=== PATIENT | male | born 1990 | race Caucasian/White ===

== ENCOUNTER 2018-07-21 12:51 | Emergency (ER) | payer OTHER, SELFPAY ==
[2018-07-21 12:55] VITALS: BP 144/84; PULSE 89; RESP 18; TEMP 36.3; O2SAT 96
--- NOTE | 2018-07-21 13:08 | W.ED.GENAD ---
Discharge Plan Disposition Patient Disposition: HOME Condition: Fair Discharge Details Chief Complaint: Abd Prob Clinical Impression: Epiploic appendagitis Primary Care Provider: Uriah Chanel ED Provider: Leatha Mcnulty Home Meds and New Rx's Prescriptions: New acetaminophen [Tylenol Extra Strength] 500 mg tablet 500 mg PO Q6H MDD 4,000 PRN (Reason: pain) Qty: 20 RF: 0 ibuprofen 600 mg tablet 600 mg PO QID PRN (Reason: pain) Qty: 20 RF: 0 Discharge Instructions Instructions: Abdominal Pain (ED) Additional Instructions: Encourage hydration. He states Tylenol and ibuprofen as needed for discomfort. Please follow-up with primary care in 1 week for reevaluation. If you develop fever/chills, increased pain, inability to stay hydrated, vomiting new/worsening symptoms please seek care urgently once again. Stand Alone Forms: Work Release Referrals: Uriah Chanel DO [Primary Care Provider] - Medical Decision Making Patient 28-year-old male presents for chief complaint left lower quadrant pain. Reports the pain began insidiously last night. No change in appetite. Does state that last night his pain increased after p.o. consumption. However, he has not noted increased increased pain today after eating. Denies any fevers or chills. No nausea or vomiting. No change in bowel or bladder habit. Has not noted any blood in his stool. No pain in his testicles. Patient denies previous abdominal surgeries. On exam, patient is point tender in the left lower quadrant. He appears nontoxic with stable vital signs. Plan obtain laboratory evaluation as well as CT scan. Laboratory evaluation without significant abnormalities Spoke with the radiologist regarding CT. He advises significant for epiploic appendagitis. Will consult with general surgery. Spoke with Dr. Lynch with general surgery. She advised that pain management with non narcotics is appropriate. Stated that the fat should calcify. Without findings to suggest infection, no other treatment is necessary at this time, she advised no antibiotics are needed at this time. Patient and I discussed diagnosis and pathology. We discussed expected course. Advise follow-up with primary care next week for reevaluation. He will seek care more urgently if he develops new or worsening symptoms. In particular, patient I discussed signs symptoms of infection and when to seek care urgently once again. All of his questions and concerns were addressed and he is in agreement this plan. HPI General Mode of arrival: ambulatory. Date/Time Provider Initiated Documentation: 07/21/18 12:56. Limitations to Documentation: no limitations. Information obtained by: patient. History of Present Illness 28 year old M presents to the emergency department with the chief complaint of abdominal pain, described as moderate, with intensity rated at 5. Quality is described as aching, and is localized to the abdomen. Patient reports no radiation. Patient started experiencing this day(s) (1) and it has been constant. No relieving factors improve symptom(s), No exacerbating factors reported . Patient notes denies chest pain, cough, fever/chills, headaches, loss of appetite, nausea/vomiting, rash, shortness of breath and weakness. Patient did receive the following treatments prior to arrival, none Related Data Home Medications Medication Instructions Recorded Confirmed acetaminophen [Tylenol Extra 500 mg PO Q6H PRN #20 tab MDD 4,000 07/21/18 Strength] ibuprofen 600 mg PO QID PRN #20 tab 07/21/18 Previous Rx's Medication Instructions Recorded acetaminophen [Tylenol Extra 500 mg PO Q6H PRN #20 tab MDD 4,000 07/21/18 Strength] ibuprofen 600 mg PO QID PRN #20 tab 07/21/18 Allergies Allergy/AdvReac Type Severity Reaction Status Date / Time No Known Allergies Allergy Unverified 07/21/18 13:00 General Stated Complaint: Abd Prob KONRAD: 3 Review of Systems Constitutional Reports as per HPI, Denies chills, Denies fatigue, Denies fever(s) and Denies headache(s) ENT Denies headache(s) Cardiovascular Reports as per HPI, Denies chest pain and Denies dyspnea Respiratory Denies dyspnea Gastrointestinal Reports as per HPI Genitourinary Denies system reviewed and no additional complaints, except as docu (patient denies any change in urinary habits) Musculoskeletal Reports as per HPI and Denies back pain Integumentary/Breasts Reports as per HPI and Denies rash Neurologic Denies headache(s) Endocrine Denies fatigue PFSH Social History Smoking/Tobacco Use Status: Former Tobacco Use Social History Smoking/Tobacco Use Status: Former Tobacco Use Exam Const General: cooperative, healthy appearing, comfortable, no acute distress and well developed Nutritional Appearance: well nourished and overweight Orientation: alert and awake [facility] Head: normal to inspection Mouth: moist mucous membranes Resp Effort & Inspection: normal respiratory effort, able to speak in complete sentences and no respiratory distress Auscultation: clear to auscultation bilaterally, no rales, no rhonchi and no wheezes Cardio Rate: regular rate Rhythm: regular rhythm Heart Sounds: S1 normal and S2 normal GI Inspection: normal to inspection, no abdominal wall ecchymosis, no edema, non-distended and obesity Palpation: soft, no hepatosplenomegaly, not firm, no guarding, not rigid and tender in the LLQ; not at McBurney's point, Bourgeois's sign negative, obturator sign negative, psoas sign negative and with no rebound tenderness Percussion: normal to percussion Auscultation: normal bowel sounds Back/Spine/Pelvis Back: no CVA tenderness Skin General skin exam: no rashes or lesions noted Trauma: no lacerations or abrasions Neuro General: alert and awake Cognition: normal cognition Speech: speech normal Gait: normal gait Psych Appearance: grossly normal and well kempt Mental Status: mental status grossly normal Speech and Movement: speech and movement normal Course Vital Signs Temperature 36.3 C L 07/21/18 12:55 Pulse 89 07/21/18 12:55 Respiratory Rate 18 07/21/18 12:55 Blood Pressure 144/84 H 07/21/18 12:55 Pulse Oximetry 96 07/21/18 12:55 Temperature 36.3 C L 07/21/18 12:55 Temperature Source Skin 07/21/18 12:55 Pulse 89 07/21/18 12:55 Respiratory Rate 18 07/21/18 12:55 Respiratory Effort 07/21/18 12:58 Blood Pressure 144/84 H 07/21/18 12:55 Blood Pressure Position Sitting 07/21/18 12:55 Pulse Oximetry 96 07/21/18 12:55 Oxygen Delivery Method Room Air 07/21/18 12:55 Oxygen Flow Rate 0 07/21/18 12:55 Pain Level 5 07/21/18 13:00
[2018-07-21 13:38] LABS: Abs Immature Grans 0.01 k/cumm (0.0-0.09); Absolute Basophil Count 0.02 k/cumm (0.0-0.2); Absolute Lymphocyte Count 1.85 k/cumm (1.2-3.4); Absolute Monocyte Count 0.45 k/cumm (0.11-0.7); Absolute Neutrophil Count 5.28 k/cumm (1.2-6.7); Basophils % 0.3; Eosinophils % 1.3; HCT 45.6 % (40.0-50.0); Immature Grans % 0.1; Mean Corp. HGB Concentration 35.1 g/dL (32.0-36.0); Mean Corpuscular Hemoglobin 30.3 pg (27.0-33.0); Mean Corpuscular Volume 86.4 fL (80-95); Mean Platelet Volume 9.5 fL (8.0-11.0); Monocytes % 5.8; Neutrophils % 68.5; Platelet Count 286 x1000/uL (130-400); RBC 5.28 m/cumm (4.50-6.00); RBC Distribution Width 12.7 % (11.8-14.1); White Blood Cell Count 7.71 k/cumm (4.4-10.8)
--- NOTE | 2018-07-21 13:51 | ED.GENADUL_ITS ---
Discharge Plan Disposition Patient Disposition: HOME Condition: Fair Discharge Details Chief Complaint: Abd Prob Clinical Impression: Epiploic appendagitis Primary Care Provider: Uriah Chanel ED Provider: Leatha Mcnulty Home Meds and New Rx's Prescriptions: New acetaminophen [Tylenol Extra Strength] 500 mg tablet 500 mg PO Q6H MDD 4,000 PRN (Reason: pain) Qty: 20 RF: 0 ibuprofen 600 mg tablet 600 mg PO QID PRN (Reason: pain) Qty: 20 RF: 0 Discharge Instructions Instructions: Abdominal Pain (ED) Additional Instructions: Encourage hydration. He states Tylenol and ibuprofen as needed for discomfort. Please follow-up with primary care in 1 week for reevaluation. If you develop fever/chills, increased pain, inability to stay hydrated, vomiting new/ worsening symptoms please seek care urgently once again. Stand Alone Forms: Work Release Referrals: Uriah Chanel DO [Primary Care Provider] - Medical Decision Making Patient 28-year-old male presents for chief complaint left lower quadrant pain. Reports the pain began insidiously last night. No change in appetite. Does state that last night his pain increased after p.o. consumption. However, he has not noted increased increased pain today after eating. Denies any fevers or chills. No nausea or vomiting. No change in bowel or bladder habit. Has not noted any blood in his stool. No pain in his testicles. Patient denies previous abdominal surgeries. On exam, patient is point tender in the left lower quadrant. He appears nontoxic with stable vital signs. Plan obtain laboratory evaluation as well as CT scan. Laboratory evaluation without significant abnormalities Spoke with the radiologist regarding CT. He advises significant for epiploic appendagitis. Will consult with general surgery. Spoke with Dr. Lynch with general surgery. She advised that pain management with non narcotics is appropriate. Stated that the fat should calcify. Without findings to suggest infection, no other treatment is necessary at this time, she advised no antibiotics are needed at this time. Patient and I discussed diagnosis and pathology. We discussed expected course. Advise follow-up with primary care next week for reevaluation. He will seek care more urgently if he develops new or worsening symptoms. In particular, patient I discussed signs symptoms of infection and when to seek care urgently once again. All of his questions and concerns were addressed and he is in agreement this plan. HPI General Mode of arrival: ambulatory . Date/Time Provider Initiated Documentation: 07/21/18 12:56 . Limitations to Documentation: no limitations . Information obtained by: patient . History of Present Illness 28 year old M presents to the emergency department with the chief complaint of abdominal pain, described as moderate, with intensity rated at 5. Quality is described as aching, and is localized to the abdomen. Patient reports no radiation. Patient started experiencing this day(s) (1) and it has been constant. No relieving factors improve symptom(s), No exacerbating factors reported . Patient notes denies chest pain, cough, fever/chills, headaches, loss of appetite, nausea/vomiting, rash, shortness of breath and weakness. Patient did receive the following treatments prior to arrival, none Related Data Home Medications Medication Instructions Recorded Confirmed acetaminophen [Tylenol Extra 500 mg PO Q6H PRN #20 tab MDD 4,000 07/21/18 Strength] ibuprofen 600 mg PO QID PRN #20 tab 07/21/18 Previous Rx's Medication Instructions Recorded acetaminophen [Tylenol Extra 500 mg PO Q6H PRN #20 tab MDD 4,000 07/21/18 Strength] ibuprofen 600 mg PO QID PRN #20 tab 07/21/18 Allergies Allergy/AdvReac Type Severity Reaction Status Date / Time No Known Allergies Allergy Unverified 07/21/18 13:00 General Stated Complaint: Abd Prob KONRAD: 3 Review of Systems Constitutional Reports as per HPI, Denies chills, Denies fatigue, Denies fever(s) and Denies headache(s) ENT Denies headache(s) Cardiovascular Reports as per HPI, Denies chest pain and Denies dyspnea Respiratory Denies dyspnea Gastrointestinal Reports as per HPI Genitourinary Denies system reviewed and no additional complaints, except as docu (patient denies any change in urinary habits) Musculoskeletal Reports as per HPI and Denies back pain Integumentary/Breasts Reports as per HPI and Denies rash Neurologic Denies headache(s) Endocrine Denies fatigue PFSH Social History Smoking/Tobacco Use Status: Former Tobacco Use Social History Smoking/Tobacco Use Status: Former Tobacco Use Exam Const General: cooperative, healthy appearing, comfortable, no acute distress and well developed Nutritional Appearance: well nourished and overweight Orientation: alert and awake [facility] Head: normal to inspection Mouth: moist mucous membranes Resp Effort & Inspection: normal respiratory effort, able to speak in complete sentences and no respiratory distress Auscultation: clear to auscultation bilaterally, no rales, no rhonchi and no wheezes Cardio Rate: regular rate Rhythm: regular rhythm Heart Sounds: S1 normal and S2 normal GI Inspection: normal to inspection, no abdominal wall ecchymosis, no edema, non- distended and obesity Palpation: soft, no hepatosplenomegaly, not firm, no guarding, not rigid and tender in the LLQ; not at McBurney's point, Bourgeois's sign negative, obturator sign negative, psoas sign negative and with no rebound tenderness Percussion: normal to percussion Auscultation: normal bowel sounds Back/Spine/Pelvis Back: no CVA tenderness Skin General skin exam: no rashes or lesions noted Trauma: no lacerations or abrasions Neuro General: alert and awake Cognition: normal cognition Speech: speech normal Gait: normal gait Psych Appearance: grossly normal and well kempt Mental Status: mental status grossly normal Speech and Movement: speech and movement normal Course Vital Signs Temperature 36.3 C L 07/21/18 12:55 Pulse 89 07/21/18 12:55 Respiratory Rate 18 07/21/18 12:55 Blood Pressure 144/84 H 07/21/18 12:55 Pulse Oximetry 96 07/21/18 12:55 Temperature 36.3 C L 07/21/18 12:55 Temperature Source Skin 07/21/18 12:55 Pulse 89 07/21/18 12:55 Respiratory Rate 18 07/21/18 12:55 Respiratory Effort 07/21/18 12:58 Blood Pressure 144/84 H 07/21/18 12:55 Blood Pressure Position Sitting 07/21/18 12:55 Pulse Oximetry 96 07/21/18 12:55 Oxygen Delivery Method Room Air 07/21/18 12:55 Oxygen Flow Rate 0 07/21/18 12:55 Pain Level 5 07/21/18 13:00
[2018-07-21 13:57] LABS: Lipase 110 U/L (73-393)
[2018-07-21 14:07] LABS: ALT 49 U/L (12-78); AST 17 U/L (15-37); Albumin 4.1 g/dL (3.4-5.0); Alkaline Phosphatase 58 U/L (46-116); Anion Gap 12.1 mmol/L (3-11); BUN 19 mg/dL (7-18); Bilirubin, Total 0.5 mg/dL (0.2-1.0); CO2 25.9 mmol/L (21.0-32.0); CREATININE 1.04 mg/dL (0.70-1.30); Calcium 9.1 mg/dL (8.5-10.1); Chloride 103 mmol/L (98-107); Glucose 95 mg/dL (70-100); Magnesium 1.9 mg/dL (1.8-2.4); Potassium 3.9 mmol/L (3.5-5.1); Sodium 141 mmol/L (136-145); Total Protein 7.6 g/dL (6.4-8.2)
--- NOTE | 2018-07-21 14:18 | DI.CT_ITS ---
SYMPTOM/DIAGNOSIS: ABDOMEN AND PELVIC CT: CT scan of the abdomen and pelvis was performed following the uneventful administration of intravenous contrast material. No priors for comparison. The lung bases are clear. The liver, spleen, pancreas and adrenal glands are unremarkable. There are stones seen within the gallbladder. No biliary ductal dilatation is present. The kidneys show normal and symmetric enhancement. No solid renal mass or obstruction is seen. The urinary bladder is intact. The reproductive organs are unremarkable. There is increased attenuation in the fat adjacent to the proximal sigmoid colon. The underlying bowel is unremarkable. The findings are most suggestive of epiploic appendagitis. The remainder of the bowel is unremarkable. There is a normal appendix present. The abdominal aorta is of normal caliber. No significant abdominal or pelvic adenopathy, ascites or pneumoperitoneum is seen. There is spondylolysis at L 5 with minimal spondylolisthesis of L 5 on S 1. IMPRESSION: Increased attenuation in the fat adjacent to the proximal sigmoid colon. The findings radiographically are most suggestive of epiploic appendagitis. The findings were discussed with Leatha Mcnulty of the ER on the date of the examination.
[2018-07-21] MEDS: Omnipaque 350 MG/ML 100 ML BTL IJ (14:23)
[2018-07-21 14:54] VITALS: BP 144/84; PULSE 89; RESP 18; TEMP 36.3; O2SAT 96
== END 2018-07-21 14:55 | disposition home or self-care (01) ==
LOC: ER 15:31
PROVIDERS: Emergency Provider Physician Assistant; PCP Emergency Medicine
DX: K35.890 Other acute appendicitis without perforation or gangrene (principal)
CPT/HCPCS: 80053; 83690; 99285; 74177; 83735; 85025; 99284; J3490

== ENCOUNTER 2019-11-06 11:48 | Outpatient (CLI) | payer BC, SELFPAY ==
[2019-11-06 12:47] LABS: Abs Immature Grans 0.02 k/cumm (0.0-0.09); Absolute Basophil Count 0.02 k/cumm (0.0-0.2); Absolute Eosinophil Count 0.07 k/cumm (0.0-0.7); Absolute Lymphocyte Count 0.91 k/cumm (1.2-3.4); Absolute Monocyte Count 0.76 k/cumm (0.11-0.7); Absolute Neutrophil Count 8.54 k/cumm (1.2-6.7); Basophils % 0.2; Eosinophils % 0.7; Immature Grans % 0.2 %; Lymphocytes % 8.8; Mean Corp. HGB Concentration 35.4 g/dL (32.0-36.0); Mean Corpuscular Hemoglobin 30.9 pg (27.0-33.0); Mean Corpuscular Volume 87.3 fL (80-95); Mean Platelet Volume 9.5 fL (8.0-11.0); Monocytes % 7.4; Neutrophils % 82.7; Platelet Count 300 x1000/uL (130-400); RBC Distribution Width 12.8 % (11.8-14.1); White Blood Cell Count 10.32 k/cumm (4.4-10.8)
[2019-11-06 13:28] LABS: ESR 15 mm/hr (0-15)
[2019-11-06 14:02] LABS: ALT 32 U/L (16-63); AST 14 U/L (15-37); Albumin 4.5 g/dL (3.4-5.0); Alkaline Phosphatase 62 U/L (46-116); Bilirubin, Direct 0.19 mg/dL (0.00-0.20); Lipase 92 U/L (73-393); Total Protein 7.4 g/dL (6.4-8.2)
[2019-11-06 14:16] LABS: Calculated LDL 165 mg/dL (<100); Cholesterol 246 mg/dL (<200); HDL Cholesterol 53 mg/dL (40-60); Triglyceride 142 mg/dL (<150)
== END 2019-11-06 12:08 ==
PROVIDERS: PCP Emergency Medicine; Visit Provider Family Medicine
DX: E78.5 Hyperlipidemia, unspecified (principal); D64.9 Anemia, unspecified; R10.9 Unspecified abdominal pain; R51 Headache
CPT/HCPCS: 36415; 80061; 80076; 83690; 85652; 85025

== ENCOUNTER 2019-11-08 09:45 | Outpatient (CLI) | payer BC, SELFPAY ==
[2019-11-08] MEDS: Breeza Beverage 473 ML BTL PO ×2 (12:35→12:36)
[2019-11-08] MEDS: Omnipaque 350 MG/ML 50 ML BTL PO (12:36)
--- NOTE | 2019-11-08 14:00 | DI.CT_ITS ---
EXAM: CT ABDOMEN AND PELVIS W CLINICAL HISTORY: PERIUMBILICAL ABD PAIN WITH FEVER, R10.9 TECHNIQUE: Imaging Protocol: Axial computed tomography images with coronal and sagittal reformatted images were created and reviewed CONTRAST MATERIAL: Intravenous: Omnipaque 350 Contrast volume:100 mL Oral: Yes FINDINGS: ABDOMEN: Lung Bases: Normal where visualized. Liver: Normal density. No measurable mass. Portal, Superior Mesenteric, and Splenic Veins: Unremarkable. Gallbladder and Biliary Tract: Cholelithiasis. No biliary ductal dilatation. Pancreas: Normal density, no abnormal calcifications or inflammatory process. Spleen: Normal. Adrenals: No masses seen. Kidneys: Normal size, contour and axis. No radiodense stones or obstructive uropathy. No masses seen. Abdominal Aorta: Abdominal portion non-dilated. Bowel: No obstruction or bowel wall thickening. Appendix is unremarkable. Peritoneal Cavity: No ascites, collection or mesenteric inflammatory response. Lymph Nodes: Mildly enlarged lymph nodes in the mesentery. Bones: Bilateral L5 spondylolysis and grade 1 spondylolisthesis of L5 on S1. Moderately severe bilat eral neural foraminal narrowing at L5-S1. Stable mild sclerosis at the left sacroiliac joint. Soft Tissues: No evidence of a periumbilical mass or abscess. PELVIS: Bladder: Symmetric distention, no gross wall thickening. Reproductive Organs: Unremarkable as visualized. Lymph Nodes: Please see above. Bones: Please see above. IMPRESSION: 1. Mildly enlarged lymph nodes in the mesentery, which may reflect mesenteric adenitis. 2. Bilateral L5 spondylolysis and grade 1 spondylolisthesis. There is moderately severe bilateral ne ural foraminal narrowing at L5-S1. 3. Cholelithiasis but no evidence of biliary ductal dilatation. RADIATION DOSE DELIVERED: DATA REPOSITORY: All CT scans at this facility are submitted to the National Radiology Data Registry (NRDR) Dose Index Registry (DIR) with the [employer] ([employer]). RADIATION OPTIMIZATION: All CT scans at this facility use at least one of these dose optimization te chniques: automated exposure control; mA and/or kV adjustment per patient size (includes targeted exa ms where dose is matched to clinical indication); or iterative reconstruction.
[2019-11-08] MEDS: Omnipaque 350 MG/ML 100 ML BTL IV (14:23)
[2019-11-08] MEDS: Normal Saline - Diluent 50 ML VIAL IV (14:24)
== END 2019-11-08 10:05 ==
PROVIDERS: PCP Emergency Medicine; Visit Provider Family Medicine
DX: R10.33 Periumbilical pain (principal); R50.9 Fever, unspecified; K80.20 Calculus of gallbladder without cholecystitis without obstruction; R59.0 Localized enlarged lymph nodes
CPT/HCPCS: 74177; J3490; Q9967

== ENCOUNTER 2020-07-01 09:56 | Outpatient (REF) | payer BC, SELFPAY ==
[2020-07-01 14:15] LABS: HCT 45.8 % (40.0-50.0); HGB 15.8 g/dL (13.5-17.5); MCH 30.7 pg (27.0-33.0); MCHC 34.5 % (32.0-36.0); MCV 88.9 fL (80-95); MPV 10.4 fL (8.0-11.0); Platelet Count 318 10^3/uL (130-400); RBC 5.15 10^6/uL (4.36-5.78); RDW 12.1 % (11.8-14.1); RDW-SD 39.5 fL; WBC 5.36 10^3/uL (4.4-10.8)
[2020-07-01 14:34] LABS: C-Reactive Protein 0.09 mg/dL (0.0-0.3)
[2020-07-01 14:49] LABS: ESR 5 mm/hr (0-15)
== END 2020-07-01 10:16 ==
LOC: LBN 09:56
PROVIDERS: PCP Emergency Medicine; Visit Provider Emergency Medicine
DX: R51.9 Headache, unspecified (principal)
CPT/HCPCS: 85027; 85652; 86140

== ENCOUNTER 2020-07-08 01:52 | Outpatient (CLI) | payer BC, SELFPAY ==
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
[2020-07-08] MEDS: Omnipaque 350 MG/ML 100 ML BTL IJ (09:30)
[2020-07-08] MEDS: Normal Saline - Diluent 50 ML VIAL IV (09:31)
== END 2020-07-08 02:12 ==
PROVIDERS: PCP Emergency Medicine; Visit Provider Emergency Medicine
DX: G44.82 Headache associated with sexual activity (principal); G44.309 Post-traumatic headache, unspecified, not intractable
CPT/HCPCS: 70470; J3490

== ENCOUNTER 2020-07-17 02:38 | Outpatient (CLI) | payer BC, SELFPAY ==
[2020-07-19 17:01] LABS: COVID-19 RT-PCR Result NEGATIVE (Negative)
== END 2020-07-17 02:58 ==
PROVIDERS: PCP Emergency Medicine; Visit Provider Surgery
DX: Z11.59 Encounter for screening for other viral diseases (principal); Z01.818 Encounter for other preprocedural examination
CPT/HCPCS: U0003

== ENCOUNTER 2020-07-21 13:11 | Day surgery (SDC) | payer BC, SELFPAY ==
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
--- NOTE | 2020-07-21 07:17 | W.PM.DSUDISC ---
Discharge Plan Disposition Patient Disposition: HOME Condition: Good Discharge Details Reason For Visit: Abdominal pain Attending Provider: Ban Dillard Primary Care Provider: Uriah Chanel Home Meds and New Rx's Prescriptions: New omeprazole 40 mg capsule,delayed release(DR/EC) 40 mg PO DAILY Qty: 30 RF: 0 Continued magnesium oxide 400 mg magnesium tablet 400 mg PO DAILY Qty: 90 RF: 3 metoclopramide HCl 10 mg tablet 10 mg PO ONCE PRN (Reason: nausea and vomiting) Qty: 30 RF: 6 acetaminophen [Tylenol Extra Strength] 500 mg tablet 500 mg PO Q6H MDD 4,000 PRN (Reason: pain) Qty: 20 RF: 0 Discontinued naproxen 500 mg tablet 500 mg PO ONCE PRN (Reason: pain) Qty: 30 RF: 3 ibuprofen 600 mg tablet 600 mg PO QID PRN (Reason: pain) Qty: 20 RF: 0 Discharge Instructions Instructions: Diet for Stomach Ulcers and Gastritis (ED), Gastritis (DC), GERD (Gastroesophageal Reflux Disease) (DC) Additional Instructions: Findings: mild to moderate inflammation of the stomach and esophagus Follow up: 2 weeks Medications: start Omeprazole 40 mg daily Other: Please try to avoid ibuprofen, naproxen, advil, aleve, etc as much as possible for a while. Please call if you develop: fevers >101.5 Nausea or Vomiting Abdominal pain that is not transient DAY SURGERY UNIT POST ENDOSCOPY INSTRUCTIONS 1. Because there will be medication in your system for the next 24 hours, you may feel a little sleepy. Your coordination will be affected. Therefore: a. Do not drive or operate dangerous equipment for 24 hours. b. Do not drink alcohol beverages for 24 hours (not even beer). c. Plan to go home and rest for the day. 2. Generally there are no restrictions on your activity after a day or so has gone by, but you may feel a bit fatigued for a few days. 3 After you arrive home you may have a light meal and return to a normal diet as you can tolerate it without feeling sick to your stomach. 4. After surgery, you may feel pain or discomfort. This should be only transient, but if it persists please contact your doctor. 5. If there are any questions regarding the findings of your procedure, please feel free to contact your doctor. 6. If you are unable to contact your doctor with a problem, contact the hospital at [phone]. 4. Continue all your regular medications unless directed otherwise. I understand the above instructions and have no questions. Signature of Patient or Responsible Adult Escort Date/Time Name of Responsible Adult Escort Signature of Nurse Date/Time Referrals: Ban Dillard MD [ [facility] STAFF PHYSICIAN] - Activity:: Activity as Tolerated Diet:: low acid Discharge Orders Discharge Orders: Discharge Order (Routine); Ordered 07/21/20 Ordered By: Ban Dillard
[2020-07-21 13:28] VITALS: BP 127/74; PULSE 73; RESP 16; TEMP 36.3; O2SAT 96
[2020-07-21] MEDS: Lactated Ringers 1,000 ML 80 ML IV (14:16)
--- NOTE | 2020-07-21 14:23 | STOM_PTH ---
PATIENT: Ke Troncoso JR LOC: [facility] U#:[id number] AGE/SX: 30/M ROOM: RE07/21/[address]: Ban Dillard MD : 1990 BED: DIS: 07/21/2020 SPEC #: [id number] RECD: 07/21/20 18:15 STATUS: JUVENCIO RE #: [id number] HUNTER: 07/21/20 14:[address]: Ban Dillard DEPT: Surgical Specimen RECD BY: Karolina Vicente ENTERED: 07/21/20 18:16 SP TYPE: STOMACH OTHR DR: Uriah Chanel DO Tissues: 1 - BIOPSY BOWEL 2 - STOMACH BIOPSY 3 - ESOPHAGUS BIOPSY Procedures: GROSS AND MICRO LEVEL 4 Comments: [id number]
[2020-07-21 15:10] VITALS: BP 115/75; PULSE 73; RESP 18; TEMP 36.6; O2SAT 98
== END 2020-07-21 15:30 | disposition home or self-care (01) ==
LOC: SUR 13:11
PROVIDERS: PCP Emergency Medicine; Visit Provider Surgery
PROC: 0DJ68ZZ Inspection of Stomach, Via Natural or Artificial Opening Endoscopic (ICD-10-PCS; CPT 43235; principal; 2020-07-21 14:00)
DX: R10.9 Unspecified abdominal pain (principal); R68.81 Early satiety; K21.00 Gastro-esophageal reflux disease with esophagitis, without bleeding; K31.89 Other diseases of stomach and duodenum; K29.80 Duodenitis without bleeding; K29.70 Gastritis, unspecified, without bleeding
CPT/HCPCS: 43239; 88305; J2001

== ENCOUNTER 2020-07-24 10:51 | Outpatient (CLI) | payer BC, SELFPAY ==
--- NOTE | 2020-07-24 10:40 | DI.RAD_ITS ---
EXAM: XR CHEST 2V PA LATERAL CLINICAL HISTORY: chest pressure, hx smoking x 15 years R07.89 CHEST PAIN TECHNIQUE: 2D digital imaging was performed. COMPARISON: CR CHEST 2 VIEWS PA,LAT from 07/25/2015 FINDINGS: The heart is not enlarged. The lungs are clear and well expanded. No pleural effusion seen. Mediastin al contours appear intact. IMPRESSION: Normal chest. RADIATION DOSE DELIVERED: Total DLP
== END 2020-07-24 11:11 ==
PROVIDERS: PCP Emergency Medicine; Visit Provider Physician Assistant
DX: R07.89 Other chest pain (principal); Z87.891 Personal history of nicotine dependence
CPT/HCPCS: 71046

== ENCOUNTER 2022-07-27 08:20 | Emergency (ER) | payer BC, SELFPAY ==
[2022-07-27 08:25] VITALS: BP 159/107; PULSE 111; RESP 20; TEMP 37; O2SAT 97
[2022-07-27 08:30] VITALS: RESP 20
[2022-07-27 08:32] VITALS: RESP 20
--- NOTE | 2022-07-27 08:45 | DI.RAD_ITS ---
Exam(s) XR PORTABLE CHEST AP EXAM: XR PORTABLE CHEST AP CLINICAL HISTORY: cough,chest pain TECHNIQUE: 2D digital imaging was performed of the chest. One image was obtained. An AP view was ob tained. COMPARISON: CR XR CHEST 2V PA LATERAL from 07/24/2020 FINDINGS: MEDIASTINUM: Normal. HEART: Normal. PULMONARY VASCULATURE: Normal. LUNGS: Clear. PLEURAL SPACE: No pleural effusion or pneumothorax. BONE:Within normal limits for the patient's age. OTHER FINDINGS:Normal. IMPRESSION: No acute pulmonary findings. DATA REPOSITORY: RADIATION DOSE DELIVERED:
[2022-07-27] MEDS: Dexamethasone 4 MG TAB 8 MG PO (08:53)
[2022-07-27] MEDS: Ibuprofen 600 MG TAB PO (08:53)
--- NOTE | 2022-07-27 13:33 | W.ED.GENAD ---
Discharge Plan Disposition Patient Disposition: Home Condition: Stable Discharge Details Clinical Impression: Influenza A Primary Care Provider: Huy Shah ED Provider: Karolina Monsivais Home Meds and New Rx's Prescriptions: New albuterol sulfate [Ventolin HFA] 90 mcg/actuation HFA aerosol inhaler 2 puff inhalation Q6H PRNQty: 6.7 0RF (DME) Space Chamber Spacer See Rx Instructions .Route Qty: 1 0RF Rx Instructions: As directed Continued Excedrin Extra Strength 250-250-65 mg tablet 1 tab PO ONCE PRN Discharge Instructions Instructions: Influenza (DC) Additional Instructions: Take ibuprofen 600 mg every 8 hours with food Take Tylenol 650 mg every 4-6 hours Robitussin as needed for cough Warm tea can help with mucus production Use your inhaler, 2 puffs every 4-6 hours The Decadron will likely improve your symptoms within the next 4 hours Stand Alone Forms: Work Release Referrals: Huy Shah, [employer]ATION OPERATOR CHIEF [Primary Care Provider] - 2 days Medical Decision Making This 32-year-old male presents with flulike symptoms, ordered rapid flu and COVID Influenza A positive Patient appears well, flu a positive, repeat pulse 90, temp 101 Chest x-ray per radiology interpretation my review does not show evidence of acute abnormality We will give single dose of Decadron for cough and pain Albuterol inhaler now Ibuprofen and Tylenol Return precautions reviewed and patient expressed understanding, discharged home in stable condition with stable vitals Medical Records Medical records reviewed: Yes I reviewed the patient's medical records. Lab Data Lab results reviewed: Yes I reviewed the patient's lab results. Sign Out No HPI General Date/Time Provider Initiated Documentation: 07/27/22 08:40. HPI Narrative: This 32-year-old male presents with report of body aches, headache, sore throat, nausea, diarrhea, pleuritic chest pain and mucus production. States he had a temp of 103 this morning. States all family members are sick with similar symptoms. Denies any history of asthma or COPD. Does not smoke tobacco. Denies any current nausea or vomiting. Related Data Home Medications Medication Instructions Recorded Confirmed vmdsrdi-hzqiatkvqdmcz-vyhgnsoc 250 1 tab PO ONCE PRN 07/09/22 07/27/22 mg-250 mg-65 mg tablet (Excedrin Extra Strength) albuterol sulfate 90 mcg/actuation 2 puff inhalation Q6H PRN #6.7 07/27/22 aerosol inhaler (Ventolin HFA) grams inhalational spacing device (Space #1 ea 07/27/22 Chamber) Previous Rx's Medication Instructions Recorded albuterol sulfate 90 mcg/actuation 2 puff inhalation Q6H PRN #6.7 07/27/22 aerosol inhaler (Ventolin HFA) grams inhalational spacing device (Space #1 ea 07/27/22 Chamber) Allergies Allergy/AdvReac Type Severity Reaction Status Date / Time No Known Allergies Allergy Unverified 07/09/22 08:27 General Stated Complaint: [facility] KONRAD: 3 Review of Systems All systems reviewed & are unremarkable except as noted in HPI and below PFSH All Active Problems (Updated 07/27/22 @ 09:25 by NAYAN Mccann) Influenza A (Acute) Influenza (Acute) Chest pressure (Acute) Lichen planus (Acute) 10/22/15; [facility] [place] Headache (Acute) Early satiety (Acute ~07/27/22) Abdominal pain (Acute) 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 (Acute) Headache associated with orgasm (Acute) Infertility counseling (Acute) Cholelithiasis (Acute) Medical History (Updated 07/27/22 @ 09:25 by NAYAN Mccann) Hemorrhoids removed 1 year ago Surgical History H/O arthroscopic knee surgery History of tonsillectomy S/P excision of lipoma Social History Smoking/Tobacco Use Status: Former Tobacco Use Quit Date: 03/15/20 Smoking risk assessment performed?: Yes Alcohol Intake: current Alcohol Intake frequency: a few times a week Alcohol type: beer Drug use: Never Substance use type: does not use Household members: spouse 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 [employer] Current gender identity: male Do you feel safe at home: Yes Do you feel safe in your relationship?: Yes Exam Const General: cooperative and comfortable Orientation: alert and oriented x3 HENMT Head: normal to inspection Other: Oropharynx patent, uvula midline Eyes Sclera: sclerae normal Neck Other: No meningismus Chest Chest: normal inspection of the chest Resp Effort & Inspection: normal respiratory effort Auscultation: clear to auscultation bilaterally Cardio Rate: regular rate Rhythm: regular rhythm GI Inspection: normal to inspection Skin General skin exam: no rashes or lesions noted Neuro General: patient alert and patient oriented x3 Course Vital Signs Vital signs: Vital Signs Temperature 37.0 C 07/27/22 08:25 Pulse 111 H 07/27/22 08:25 Respiratory Rate 20 07/27/22 08:25 Blood Pressure 159/107 H 07/27/22 08:25 Pulse Oximetry 97 07/27/22 08:25 Temperature 37.0 C 07/27/22 08:25 Temperature Source Oral 07/27/22 08:25 Pulse 111 H 07/27/22 08:25 Respiratory Rate 20 07/27/22 08:32 Respiratory Effort Non-Labored 07/27/22 08:32 Respiratory Depth Normal 07/27/22 08:32 Respiratory Pattern Normal 07/27/22 08:32 Blood Pressure 159/107 H 07/27/22 08:25 Blood Pressure Position Sitting 07/27/22 08:25 Pulse Oximetry 97 07/27/22 08:25 Oxygen Delivery Method Room Air 07/27/22 08:25 Oxygen Flow Rate 0 07/27/22 08:25 Pain Level 9 07/27/22 08:25 PAWSS Have you Been Recently Intoxicated or Drunk Within the Last 30 days?: No Have you Ever Experienced Previous Episodes of Alcohol Withdrawal?: No Have you ever Experienced Withdrawal Seizures?: No Have you ever Experienced Delirium Tremens(DT)s?: No Have you ever undergone Alcohol Rehabilitation Treatment (i.e, inpt ot outpatient treatment programs)?: No Have you ever Experienced Blackouts?: No Have you ever Combined Alcohol with other Downers within the last 90 days?: No Have you ever Combined Alcohol with any other Substance of Abuse during the last 90 days?: No Positive Blood Alcohol level on Presentation? [PCS.BAL]: No Evidence of Increased Autonomic Activity (i.e. HR>120, tremor, sweating, agitation, nausea)?: No Result: 0
== END 2022-07-27 09:34 | disposition home or self-care (01) ==
PROVIDERS: Emergency Provider Physician Assistant; PCP Nurse Practitioner Family
DX: J10.1 Influenza due to other identified influenza virus with other respiratory manifestations (principal)
CPT/HCPCS: 99283; 71045; 99284; J8540

== ENCOUNTER 2022-08-25 08:25 | Day surgery (SDC) | payer BC, SELFPAY ==
[2022-08-25 08:35] VITALS: BP 133/89; PULSE 91; RESP 18; TEMP 36.3; O2SAT 97
--- NOTE | 2022-08-25 08:54 | ANES.PREOP_ITS ---
General Info Date of Service Date Performed: 08/25/22 Height: 6 ft Weight: 126.5 kg Body Mass Index (BMI): 37.8 Surgical Procedure: Operation Date: 08/25/22 10:05 Proposed Procedure Side Surgeon p Yvon Armando MD Meds Allergies and Home Medications Allergies Allergy/AdvReac Type Severity Reaction Status Date / Time No Known Allergies Allergy Unverified 08/25/22 09:11 Home Medication Medication Instructions Recorded gafbdgz-caunoclwozbep-emvzrlem 250 1 tab PO ONCE PRN 07/09/22 mg-250 mg-65 mg tablet (Excedrin Extra Strength) inhalational spacing device (Space #1 ea 07/27/22 Chamber) bisacodyl 5 mg tablet,delayed 5 mg PO ONCE #4 tabs 08/12/22 release (Dulcolax (bisacodyl)) omeprazole magnesium 20 mg 20 mg PO DAILY #60 caps 08/12/22 capsule,delayed release (Acid Authorization Representative (omeprazole)) polyethylene glycol 3350 17 17 g PO ONCE #238 grams 08/12/22 gram/dose oral powder Current Visit Medications: Current Medications Generic Name Dose Route Start Last Admin Trade Name Freq PRN Reason Stop Dose Admin Ringer's Solution 1,000 mls @ 80 mls/hr 08/25/22 06:00 IV 08/25/22 23:59 INFUSION WILD IV Miscellaneous Supplies 1 each 08/25/22 06:00 Iv Access IV 08/25/22 23:59 DIRECTED WILD Sodium Chloride 0 ml 08/25/22 06:00 Normal Saline Flush 10 Ml Syr IV 08/25/22 23:59 PRN PRN Sodium Chloride 0 ml 08/25/22 06:00 Normal Saline 10 Ml Vial IJ 08/25/22 23:59 DIRECTED PRN Sterile Water 0 ml 08/25/22 06:00 Water,Injection,Sterile 10 Ml Vial IJ 08/25/22 23:59 DIRECTED PRN PFSH Active Problems Active Problems: Problem Status Onset Code Lichen planus L43.9 Abdominal pain R10.9 Headache R51 Cholelithiasis K80.20 Infertility counseling Z31.69 Headache associated with orgasm G44.82 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 has not had any chest pressure since 2019 encounter Surgical History Surgical History (Updated 08/25/22 @ 08:51 by Janis Mcfadden RN) H/O arthroscopic knee surgery H/O hemorrhoidectomy History of tonsillectomy S/P excision of lipoma Tobacco Smoking/Tobacco Use Status: Former Tobacco Use Alcohol Alcohol Intake: current Alcohol intake frequency: a few times a week Alcohol type: beer Substance Use Substance use: Daily Substance use type: marijuana Details: had a 5mg gummy 2 nights ago, Vital Signs and Lab Results Vital Signs Most Recent Vital Signs in EMR: Most Recent Vital Signs Temp Pulse Resp BP Pulse Ox 36.3 C L 91 H 18 133/89 97 08/25/22 08:35 08/25/22 08:35 08/25/22 08:35 08/25/22 08:35 08/25/22 08:35 Lab Results Blood Type / Crossmatch: No Data to Display Complete Blood Count: No Data to Display Complete Metabolic Panel: No Data to Display Liver Function Panel: No Data to Display Coagulation Panel: No Data to Display Cardiac Panel: No Data to Display Arterial Blood Gas: No Data to Display Venous Blood Gas: No Data to Display Pancreas Panel: No Data to Display Thyroid Panel: No Data to Display Infectious Disease: No Data to Display Blood Cultures: No Data to Display Toxicology Panel: No Data to Display Anesthesia Assessment and Plan Anesthesia History Personal History: No History of Anesthesia Complications Family History: No Family History of Anesthesia Complications Exercise Tolerance Exercise Tolerance: Metabolic Equivalents>4 Pertinent Negatives Pertinent Negatives: No Symptoms of GERD, No Major Cardiovascular Symptoms or Complaints, No Major Pulmonary Symptoms or Complaints and No History of CVA/TIA Cardiac & Pulmonary Exam Cardiac Exam: Normal S1/S2 Heart Sounds Pulmonary Exam: Clear Bilateral Breath Sounds Implantable Cardiac Device Does patient have a Pacemaker or an ICD?: No Airway Exam Known Difficult Airway: No Mallampati Class: 3 Mouth Opening: Normal (> 3cm) Thyromental Distance: Greater than 3 cm Neck Range of Motion: Full ROM Neck Circumference: Thick Teeth Condition: Normal Dentition ASA Classification ASA Score: ASA 2 Emergency Case?: No NPO Status NPO Status: NPO Clears >2 hours, Solids >8 hours Anesthesia Plan Resuscitation Status: Full Code Anesthesia Technique: General Anesthesia Airway Planned: Natural Airway Monitors Used: Standard Monitors
[2022-08-25] MEDS: Lactated Ringers 1,000 ML 80 ML IV (09:03)
[2022-08-25 09:24] VITALS: BMI 37.8
--- NOTE | 2022-08-25 09:43 | BOWEL_PTH ---
PATIENT: Ke Troncoso JR LOC: [facility] U#:[id number] AGE/SX: 32/M ROOM: RE08/25/[address]: Will Armando : 1990 BED: DIS: 08/25/2022 SPEC #: [id number] RECD: 08/25/22 12:53 STATUS: JUVENCIO RE #: [id number] HUNTER: 08/25/22 09:[address]: Will Armando DEPT: Surgical Specimen RECD BY: Karolina Vicente ENTERED: 08/25/22 12:54 SP TYPE: Bowel OTHR DR: Huy Shah, TIA Tissues: 1 - BIOPSY BOWEL Procedures: GROSS AND MICRO LEVEL 4 Comments: [id number]
[2022-08-25 09:55] VITALS: BP 130/91; PULSE 89; RESP 18; TEMP 36.7; O2SAT 96
--- NOTE | 2022-08-25 09:59 | COLE_ITS ---
Date of service: 08/25/22 Time of Service: 09:59 Colonoscopy Report Procedure Description: Procedures performed: 1. Colonoscopy with cold forceps biopsies Preoperative diagnosis: Rectal bleeding, hemorrhoids Postoperative diagnosis: Normal Colon, grade 2 internal hemorrhoids, mild e xternal hemorrhoids Surgeon: Mehreen Armando Anesthesia: Dahlia Indication for procedure: 32-year-old man with rectal bleeding in the setting of known?hemorrhoids. He has had prior hemorrhoidectomy 5/6 years ago. He does not have a family history of colon cancer. He has never had a colonoscopy. Findings: Normal terminal ileum -cold forceps biopsies were taken here to rule out the unlikely possibility of IBD.? Normal Colon.? Grade 2 internal hemorrhoids noted. Mild external hemorrhoids. Surveillance/follow-up recommendations: Another screening/surveillance scope at the age of 44. Complications: None Blood loss: Minimal Prep: Excellent Procedure in detail: Written consent was obtained from the patient who was in agreement with the risks, benefits and indications of the procedure.? We went to the endoscopy suite and laid the patient in left lateral decubitus position.? Anesthesia was administered which was tolerated well.? A timeout was performed and when we are all in agreement we began the procedure. Digital rectal exam and visual examination was performed and within normal limits.? A well?lubricated colonoscope was advanced without difficulty all the way to the cecum identified by the ileocecal valve, and triangular folds and appendiceal orifice.? Terminal ileum was normal.? It was then slowly withdrawn.?? Retroflexion was performed in the rectum.? The findings /interventions are noted above. The scope was then removed and the patient tolerated the procedure well and was then turned for anoscopy and hemorrhoid banding (see separate procedure note).
--- NOTE | 2022-08-25 10:10 | W.PM.OP ---
Date of service: 08/25/22 Time of Service: 10:00 Operative Note Operative Note Refer to Anesthesia Record Procedure Description: Procedures performed: 1.? Anoscopy 2. Internal Hemorrhoid banding x3 Preoperative diagnosis: Symptomatic grade 2 internal hemorrhoids Postoperative diagnosis: Same Surgeon: Mehreen Armando Anesthesia: Dahlia Indication for procedure: 32-year-old man with symptomatic hemorrhoids. He has had a prior hemorrhoidectomy about 5 or 6 years ago. He was found to have grade 2 internal hemorrhoids on colonoscopy. He has mild external hemorrhoid disease as well. Findings: All 3 columns double?banded Surveillance/follow-up recommendations: No follow-up needed. The durability of hemorrhoidal interventions varies greatly and sometimes is only a few years before other hemorrhoids develop/recur. Complications: None Blood loss: Minimal Specimens:? No Procedure in detail: Written consent was obtained from the patient who was in agreement with the risks, benefits and indications of the procedure.? He was kept in the same position after the colonoscopy was done (see separate procedure note) and a well?lubricated anoscope was introduced in the anal canal carefully evaluated for other pathology such as fistulas and/or fissures. None were seen. Grade 2 internal hemorrhoids were visualized at all 3 columns. Rubber band ligation was performed in all 3 columns, just above the dentate line, with 2 rubber bands placed at each location. The patient tolerated this procedure well. The scope was then removed and the PACU in stable condition and was not having perianal pain at that time.
--- NOTE | 2022-08-25 10:15 | W.ANESPOSTOP ---
Postoperative Evaluation Date, Time and Location Date Performed: 08/25/22 Time Performed: 10:02 Patient Location: Day Surgery Unit Vital Signs Most Recent Imported Vital Signs: Most Recent Vital Signs Temp Pulse Resp BP Pulse Ox 36.7 C 89 18 130/91 H 96 08/25/22 09:55 08/25/22 09:55 08/25/22 09:55 08/25/22 09:55 08/25/22 09:55 Pain Score Most Recent Pain Score: Most Recent Pain Score Pain Level 0 08/25/22 08:35 Assessment Mental Status: Awake (Alert & Oriented to Patient Baseline) Airway and Respiratory Function: Patent airway with normal (patient baseline) respiratory exam Cardiovascular Function: Hemodynamically Stable Hydration Status: Adequately Hydrated Nausea & Vomiting: No Nausea or Vomiting Pain: Pt. Denies Any Pain Peripheral Nerve Block: Patient did not receive a nerve block
[2022-08-25 10:23] VITALS: BP 134/89; PULSE 80; RESP 18; TEMP 36.4; O2SAT 99
== END 2022-08-25 10:50 | disposition home or self-care (01) ==
PROVIDERS: PCP Nurse Practitioner Family; Visit Provider Student in an Organized Health Care Education/Training Program
PROC: 0DJD8ZZ Inspection of Lower Intestinal Tract, Via Natural or Artificial Opening Endoscopic (ICD-10-PCS; CPT 45378; principal; 2022-08-25 10:00)
DX: K64.1 Second degree hemorrhoids (principal); K64.4 Residual hemorrhoidal skin tags; K62.5 Hemorrhage of anus and rectum
CPT/HCPCS: 45380; 46221; 88305

== ENCOUNTER 2022-08-28 19:54 | Emergency (ER) | payer BC, SELFPAY ==
[2022-08-28 19:58] VITALS: BP 130/83; PULSE 109; RESP 18; TEMP 36.8; O2SAT 96
--- NOTE | 2022-08-28 20:38 | ED.GENADUL_ITS ---
Discharge Plan Disposition Patient Disposition: Home Condition: Good Discharge Details Clinical Impression: Laceration of right middle finger Primary Care Provider: Huy Shah ED Provider: Zain Calhoun Home Meds and New Rx's Prescriptions: No Action Excedrin Extra Strength 250-250-65 mg tablet 1 tab PO ONCE PRN bisacodyl [Dulcolax (bisacodyl)] 5 mg tablet,delayed release (DR/EC) 5 mg PO ONCE Qty: 4 0RF Rx Instructions: Take according to provider's instructions for colonoscopy prep. polyethylene glycol 3350 17 gram/dose powder 17 g PO ONCE Qty: 238 0RF Rx Instructions: To be taken as directed by prescriber's office for colonoscopy prep. omeprazole magnesium [Acid Press Operator Assistant (omeprazole)] 20 mg capsule,delayed release(DR/EC) 20 mg PO DAILY Qty: 60 1RF (DME) Space Chamber Spacer See Rx Instructions .Route Qty: 1 0RF Rx Instructions: As directed Discharge Instructions Instructions: Finger Laceration (ED) Additional Instructions: Please leave the dressing on for 48 hours, then you may remove and begin cleaning the wound gently with soap and water. Do not directly soak the area. Watch for any signs of infection and return if any increasing redness, swelling, pain, drainage. Please return in the next 7 to 10 days for reassessment to have sutures potentially removed. It may require a prolonged healing time secondary to the location. Please use the splint to prevent any excessive bending so that it heals well. If you notice any worsening of your symptoms, or any new symptoms such as vo miting, diarrhea, fever, chills, shortness of breath, chest pain, numbness, weakness, or fainting , please return immediately to the emergency department for reevaluation. Please follow up with your primary care provider as soon as possible for reassessment and reevaluation. As always, it was a pleasure participating in your medical care today. Referrals: Huy Shah, WATER FILTERER HELPER [Primary Care Provider] - Medical Decision Making 32-year-old male who presents today for evaluation of a laceration to his right middle finger on his dominant hand. Patient states that he was walking in a hit a paddle board and did not even think he was cut by that, however he noticed his hand was sticky in the dark turn the lights on and saw that he was bleeding. He came to the ER for further assessment on his 's suggestion. He denies any numbness or tingling. No weakness. Tetanus is updated in the last 10 years per the patient. No other complaints at this time. No other modifying factors. Laceration is 5 cm on the PIP joint of the middle finger on the right hand, it extends from the medial side, presently crosses to the posterior aspect of the finger and then flips back down to the lateral side. No evidence of tendon or bony involvement whatsoever on exam. No tenderness to suggest fracture. No foreign bodies. The area was cleaned, anesthetized, and sutured with 8 simple interrupted sutures. A splint was applied to prevent any excessive skin tension. Discussed red flags for which to return. I have extensively reviewed the treatment plan and discharge instructions with the patient. I have addressed all patient concerns at this time. The patient was made aware of what symptoms to monitor for that would warrant a return to the emergency department. Discussed the plan with the patient, they demonstrate verbal understanding and agreement with our assessment and plan at this time. The documentation in this chart was dictated using [employer] dictation software. Please excuse any dictation errors. HPI General Date/Time Provider Initiated Documentation: 08/28/22 20:37 . HPI Narrative: 32-year-old male who presents today for evaluation of a laceration to his right middle finger on his dominant hand. Patient states that he was walking in a hit a paddle board and did not even think he was cut by that, however he noticed his hand was sticky in the dark turn the lights on and saw that he was bleeding. He came to the ER for further assessment on his 's suggestion. He denies any numbness or tingling. No weakness. Tetanus is updated in the last 10 years per the patient. No other complaints at this time. No other modifying factors. Related Data Home Medications Medication Instructions Recorded Confirmed uhobdgd-kjpailhhubmbx-xujqkafs 250 1 tab PO ONCE PRN 07/09/22 08/25/22 mg-250 mg-65 mg tablet (Excedrin Extra Strength) inhalational spacing device (Space #1 ea 07/27/22 08/24/22 Chamber) bisacodyl 5 mg tablet,delayed 5 mg PO ONCE #4 tabs 08/12/22 08/25/22 release (Dulcolax (bisacodyl)) omeprazole magnesium 20 mg 20 mg PO DAILY #60 caps 08/12/22 08/25/22 capsule,delayed release (Acid Press Operator Assistant (omeprazole)) polyethylene glycol 3350 17 17 g PO ONCE #238 grams 08/12/22 08/25/22 gram/dose oral powder Previous Rx's Medication Instructions Recorded inhalational spacing device (Space #1 ea 07/27/22 Chamber) bisacodyl 5 mg tablet,delayed 5 mg PO ONCE #4 tabs 08/12/22 release (Dulcolax (bisacodyl)) omeprazole magnesium 20 mg 20 mg PO DAILY #60 caps 08/12/22 capsule,delayed release (Acid Press Operator Assistant (omeprazole)) polyethylene glycol 3350 17 17 g PO ONCE #238 grams 08/12/22 gram/dose oral powder Allergies Allergy/AdvReac Type Severity Reaction Status Date / Time No Known Allergies Allergy Unverified 08/25/22 09:11 General Stated Complaint: Laceration KONRAD: 4 Review of Systems All systems reviewed & are unremarkable except as noted in HPI and below PFSH All Active Problems Lichen planus (Acute) 10/22/15; 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) Early satiety (Acute ~07/27/22) Chest pressure (Acute) Influenza (Acute) Hemorrhoids (Acute) Rectal itching (Acute) BRBPR (bright red blood per rectum) (Acute) Laceration of right middle finger (Acute) Medical History Hemorrhoids removed 1 year ago Surgical History H/O arthroscopic knee surgery H/O hemorrhoidectomy History of tonsillectomy S/P excision of lipoma Social History Smoking/Tobacco Use Status: Former Tobacco Use Quit Date: 03/15/20 Smoking risk assessment performed?: Yes Alcohol Intake: current Alcohol Intake frequency: a few times a week Alcohol type: beer Drug use: Daily Substance use type: marijuana Details: had a 5mg gummy 2 nights ago, Household members: spouse 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 3.ENT: Atraumatic external nose and ears. Moist MM. Neck: Symmetric, trachea midline, No thyromegaly. 4.CVS: +S1/S2, No murmurs or gallops. Peripheral pulses 2+ and equal in all extremities. Brisk capillary refill in all extremities. 5.RESP: Unlabored respiratory effort. Clear to auscultation bilaterally. No wheezes rales or rhonchi 6.GI: Soft, Nontender/Nondistended, No hepatosplenomegaly. No guarding or rebound. 7.MSK: Normocephalic, Extremities w/o deformity or ttp No cyanosis or clubbing, Normal movement of all extremities. Index finger demonstrates a 5 cm laceration that is crescent-shaped going from the medial side of the finger all the way over the PIP joint, to the lateral side. Patient demonstrates excellent flexion and extension with no reduction in sensation or strength. Brisk capillary refill distally. No evidence of tendon involvement. Laceration is superficial in nature. 8.Skin: Warm, Dry. No rashes or lesions. Please see musculoskeletal 9.Neuro: vacuum furnace operator II-XII grossly intact. Sensation grossly intact, no focal n eurologic deficits. 10.Psych: (AAO) x3. Appropriate mood and affect Course Vital Signs Vital signs: Vital Signs Temperature 36.8 C 08/28/22 19:58 Pulse 109 H 08/28/22 19:58 Respiratory Rate 18 08/28/22 19:58 Blood Pressure 130/83 08/28/22 19:58 Pulse Oximetry 96 08/28/22 19:58 Temperature 36.8 C 08/28/22 19:58 Pulse 109 H 08/28/22 19:58 Respiratory Rate 18 08/28/22 19:58 Respiratory Effort 08/28/22 20:05 Blood Pressure 130/83 08/28/22 19:58 Blood Pressure Position Sitting 08/28/22 19:58 Pulse Oximetry 96 08/28/22 19:58 Oxygen Delivery Method Room Air 08/28/22 19:58 Oxygen Flow Rate 0 08/28/22 19:58 Pain Level 2 08/28/22 19:58 Procedures Laceration Laceration 1: Site: hand Side (If applicable): right Size (cm): 5 Description: linear Depth: simple, single layer Local Anesthetic: Lidocaine 1% Amount of anesthesia used (mL): 5 Pre-repair: wound explored, irrigated extensively and deep structures intact Skin layer closed with: nylon Size (cm): 4-0 Number of sutures: 8 Technique: simple, interrupted
== END 2022-08-28 20:58 | disposition home or self-care (01) ==
PROVIDERS: Emergency Provider Student in an Organized Health Care Education/Training Program; PCP Nurse Practitioner Family
DX: S61.212A Laceration without foreign body of right middle finger without damage to nail, initial encounter (principal); W26.8XXA Contact with other sharp object(s), not elsewhere classified, initial encounter
CPT/HCPCS: 12002

== ENCOUNTER 2024-08-23 05:00 | Outpatient (CLI) | payer BC, SELFPAY ==
[2024-08-23 11:02] LABS: Abs Immature Grans 0.02 10^3/uL (0.0-0.06); Absolute Basophil Count 0.05 10^3/uL (0.0-0.2); Absolute Eosinophil Count 0.13 10^3/uL (0.0-0.7); Absolute Lymphocyte Count 1.79 10^3/uL (1.2-3.4); Absolute Monocyte Count 0.43 10^3/uL (0.1-0.8); Absolute Neutrophil Count 3.43 10^3/uL (1.2-6.7); Basophils % 0.9 %; Eosinophils % 2.2 %; HCT 49.4 % (40.0-50.0); Immature Grans % 0.3 %; Lymphocytes % 30.6 %; MCH 30.2 pg (27.0-33.0); MCHC 34.4 % (32.0-36.0); MCV 88 fL (80-95); MPV 9.7 fL (8.0-11.0); Monocytes % 7.4 %; Neutrophils % 58.6 %; Platelet Count 309 10^3/uL (130-400); RBC 5.62 10^6/uL (4.36-5.78); RDW-SD 38.8 fL; WBC 5.85 10^3/uL (4.4-10.8)
[2024-08-23 11:10] LABS: Hemoglobin A1C 5.3 % (<5.7)
[2024-08-23 11:24] LABS: ALT 35 U/L (16-63); AST 13 U/L (15-37); Albumin 4.3 g/dL (3.4-5.0); Alkaline Phosphatase 53 U/L (46-116); Anion Gap 5.6 mmol/L (3-11); BUN 11 mg/dL (7-18); CO2 32.4 mmol/L (21.0-32.0); CREATININE 1.1 mg/dL (0.70-1.30); Calcium 9.4 mg/dL (8.5-10.1); Calculated LDL 145 mg/dL (<100); Chloride 104 mmol/L (98-107); Cholesterol 225 mg/dL (<200); Estimated GFR 89.78 (mL/min/1.73m2); Glucose 101 mg/dL (74-106); HDL Cholesterol 52 mg/dL (40-60); Sodium 142 mmol/L (136-145); TSH (W/Ref FT4) 2.27 uIU/mL (0.36-3.74); Total Protein 7.7 g/dL (6.4-8.2); Triglyceride 143 mg/dL (<150)
[2024-08-23 21:10] LABS: HIV-1/2 Ag & Ab Screen Negative (Negative); Hepatitis C Ab w Rflx HCV PCR Negative (Negative)
[2024-08-23 21:21] LABS: HBs Antibody, Quant 34.3 mIU/mL (See Note); Hep B Surface Ab Positive (See Note); Hepatitis B Core Antibody Negative (Negative); Hepatitis B Surface Antigen Negative (Negative)
== END 2024-08-23 05:01 | disposition home or self-care (01) ==
LOC: LBO 05:00
PROVIDERS: PCP Nurse Practitioner Family; Visit Provider Nurse Practitioner Family
DX: E78.5 Hyperlipidemia, unspecified (principal); Z11.59 Encounter for screening for other viral diseases; Z11.4 Encounter for screening for human immunodeficiency virus [HIV]; K64.4 Residual hemorrhoidal skin tags; K64.8 Other hemorrhoids
CPT/HCPCS: 36415; 80053; 80061; 86704; 86706; 86803; 87340; 87389; 83036; 84443; 85025

== ENCOUNTER 2024-11-09 21:58 | Emergency (ER) | payer BC, SELFPAY ==
[2024-11-09 22:02] VITALS: BP 132/85; PULSE 92; RESP 16; TEMP 36.8; O2SAT 98
--- NOTE | 2024-11-09 22:30 | DI.RAD_ITS ---
Exam(s) XR HAND LT LIMITED EXAM: XR HAND LT LIMITED CLINICAL HISTORY: laceration from glass, L lateral palm. TECHNIQUE: 2D digital imaging was performed. COMPARISON: No exams were available for comparison FINDINGS: Two views-AP and lateral No evidence of fracture or dislocation. There is no obvious radiopaque foreign body in the soft tissues, realizing the limitations of two vie w study (there is no oblique view). There is no gas evident in the soft tissues. There does appears to be some mild soft tissue edema. For IMPRESSION: No fractures. No obvious radiopaque foreign bodies, realizing that there is no oblique view on this limited two vie w series. If there is strong clinical consideration for the presence of a foreign body than I would recommend follow-up CT scan. DATA REPOSITORY: RADIATION DOSE DELIVERED:
--- NOTE | 2024-11-09 22:49 | W.ED.GENAD ---
Discharge Plan Disposition Patient Disposition: Home Condition: Good Discharge Details Clinical Impression: Laceration of hand, left Primary Care Provider: Leti Andujar ED Provider: Mireya Rosa Home Meds and New Rx's Prescriptions: No Action omeprazole magnesium 20 mg capsule,delayed release(DR/EC) 20 mg PO DAILY Qty: 90 3RF Discharge Instructions Additional Instructions: Please call your primary care provider on Tuesday to schedule follow-up appointment to have your stitches removed in 7 to 10 days. You may also have [facility] remove your sutures for you. Wash your hands daily with antibacterial soap and water. You may apply a thin layer of antibiotic ointment such as bacitracin. Cover with nonstick dressing and Coban or Pradeep bandage. You are up-to-date for tetanus. Return to emergency care if you develop new bleeding, signs of infection such as redness/pain/swelling/pus draining, numbness or weakness to your fingers, or if you are very worried and need to be rechecked again immediately. Referrals: Leti Andujar, TIA [Primary Care Provider] - [facility] General Date/Time Provider Initiated Documentation: 11/09/24 22:01. HPI Narrative: Ke Mcguire) is a 34 year old male who presents to the emergency department today for evaluation of L hand laceration. He reports he was washing dishes tonight when a glass broke in his hand, cutting the palm of his hand. Bleeding was able to be controlled with a paper towel. She denies wrist pain, distal numbness/tingling, finger weakness. No previous injury to this hand. He is right-handed. Tetanus booster up-to-date, within the last year. Denies significant past medical history such as bleeding disorders or immunocompromise. Physical exam remarkable for 3.5 cm laceration to the palm of the left hand below fingers 3 through 5. Sensation grossly intact to fingers, full flexion and extension of fingers, as well as abduction and abduction. Full painless range of motion of the wrist. No tendon or foreign body visualized. Bleeding able to be controlled with pressure dressing. No other injuries noted. History and presentation consistent with uncomplicated hand laceration. No red flags concerning for neurovascular compromise or tendon disruption. Xray obtained to evaluate for foreign body or bony involvement. I independently interpreted the following tests: L hand xray, no foreign bodies or fractures noted. While in the emergency department, Tucker received let. 2 mL 1% lidocaine with epi additionally injected locally for anesthetic with good results. Wound is irrigated extensively with tap water and visualized to the base in a bloodless field, no foreign bodies visualized. No tendon visible. Six 4-0 Ethilon sutures placed with good approximation of edges. RN dressed wound. Reviewed discharge instructions with patient, including symptomatic management and red flags indicating need for return to emergency care Related Data Home Medications ?Medication ?Instructions ?Recorded ?Confirmed omeprazole magnesium 20 mg 20 mg PO DAILY #90 caps 08/16/24 11/09/24 capsule,delayed release Previous Rx's ?Medication ?Instructions ?Recorded omeprazole magnesium 20 mg 20 mg PO DAILY #90 caps 08/16/24 capsule,delayed release Allergies Allergy/AdvReac Type Severity Reaction Status Date / Time No Known Allergies Allergy Verified 11/09/24 22:05 General Stated Complaint: Laceration KONRAD: 4 Review of Systems Narrative: see HPI Exam Const General: cooperative, healthy appearing, comfortable, no acute distress and well developed Nutritional Appearance: average body habitus Skin General skin exam: no rashes or lesions noted Trauma: laceration left palmar hand linear, actively bleeding (scant, well controlled with pressure dressing), motor nerve function intact and sensation intact; no pulsatile bleeding, no foreign bodies present and not contaminated Neuro General: tone normal, moves all extremities and no focal motor deficits Motor: muscle tone normal throughout and strength 5/5 throughout Sensory Exam: no sensory deficits noted Extrem Left upper extremity: normal capillary refill, no joint enlargement, wrist Details: normal to inspection and normal ROM and hand Details: normal capillary refill, neuromotor exam normal, neurosensory exam normal, tendon exam normal, normal ROM of fingers and laceration; no tenderness, no ecchymosis, no crepitus, no foreign bodies and no puncture wound Course Vital Signs Vital signs: Vital Signs Temperature 36.8 C 11/09/24 22:02 Pulse 92 H 11/09/24 22:02 Respiratory Rate 16 11/09/24 22:02 Blood Pressure 132/85 11/09/24 22:02 Pulse Oximetry 98 11/09/24 22:02 Temperature 36.8 C 11/09/24 22:02 Pulse 92 H 11/09/24 22:02 Respiratory Rate 16 11/09/24 22:02 Blood Pressure 132/85 11/09/24 22:02 Pulse Oximetry 98 11/09/24 22:02 Oxygen Delivery Method Room Air 11/09/24 22:02 Oxygen Flow Rate 0 11/09/24 22:02 Pain Level 1 11/09/24 22:08 Procedure Laceration Laceration 1: Date of Procedure: 11/09/24 Patient Consented: Verbally Site: hand Side (If applicable): left Description: linear Depth: simple, single layer Local anesthetic: Lidocaine 1%, with Epi and LET(lidocaine epinephrine tetracaine) Amount of anesthesia used (mL): 2 Pre-repair:: wound explored, irrigated extensively and deep structures intact Skin layer closed with: nylon Suture size: 4-0 Number of sutures:: 6 Technique: simple, interrupted Medical Decision Making Quality:SDOH Health Related Social Needs: Health related social needs feeling lonely/isolated (Z60.8) PFSH All Active Problems (Updated 11/09/24 @ 23:01 by Mireya Mckinney) Laceration of hand, left (Acute) Internal and external bleeding hemorrhoids (Chronic) Chronic rectal pain (Chronic) DJD (degenerative joint disease) of cervical spine (Chronic) GERD (gastroesophageal reflux disease) (Chronic) Chronic headache (Chronic) Hyperlipidemia (Chronic) Cholelithiasis (Chronic) Surgical History (Updated 08/20/24 @ 22:55 by Leti Andujar NP) History of banding of hemorrhoid H/O esophagogastroduodenoscopy S/P colonoscopy History of right knee surgery H/O hemorrhoidectomy (~2018) H/O arthroscopic knee surgery History of tonsillectomy S/P excision of lipoma Family History (Updated 08/16/24 @ 14:48 by Leti Andujar NP) Mother No problems noted. Father COPD (chronic obstructive pulmonary disease) Heart disease Myocardial infarction Brother Asthma Son No problems noted. Daughter No problems noted. Daughter No problems noted. Daughter No problems noted. Maternal Grandfather Diabetes Maternal Grandmother Dementia Breast cancer Paternal Grandfather No problems noted. Paternal Grandmother Heart disease Social History (Updated 08/17/24 @ 10:12 by Amanda Patel) Smoking/Tobacco Use Status: Former Tobacco Use tobacco type: cigarettes Quit Date: 03/15/20 Quit status: quit date established Second Hand Exposure: Yes Smoking risk assessment performed?: Yes Alcohol Intake: current Alcohol Intake frequency: a few times a month Alcohol type: beer Details: 3-4 drinks on typical day, 6 or more drinks monthly or less Drug use: Daily Substance use type: marijuana Adopted: No Caregiver/Support person: No Household members: spouse and children Housing: house Number of Children: 4 Communication Needs: None Education Level: high school Do you need help understanding health information?: Rarely 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 Do you think of yourself as: straight/heterosexual Current gender identity: male What is your relationship status?: How often do you talk on the phone with friends or family?: three or more times per week How often do you get together with friends or relatives?: once per week How often do you attend christian or samaritan services?: decline to answer Do you belong to any clubs or organized social groups?: no Panel score (0-1 are the most socially isolated patients): 2 What type of physical activity do you participate in: decline to answer Duration: decline to answer Frequency: decline to answer Daysi/Restoration: Mormonism Special daysi needs: No Seatbelt use: always Helmet use: Yes Helmet use: always Drive intox or ride w/intox waste collection driver: No Firearms in home: Yes Firearms unloaded and locked: Yes Do you feel safe at home: Yes Do you feel safe in your relationship?: Yes Would you like helpful sources: No
[2024-11-09] MEDS: Lidocaine 1% Pres-Free W/EPI 1/200,000 30 ML VIAL (23:15)
[2024-11-09] MEDS: Lidocaine/Epinephri/Tetracaine Topical Gel 3 ML (23:16)
--- NOTE | 2024-11-10 00:08 | DI.VRAD_ITS ---
PROCEDURE INFORMATION: Exam: XR Left Hand Exam date and time: 11/09/2024 11:03 PM Age: 34 years old Clinical indication: Other: Laceration from glass, L lateral palm; Additional info: PT unable to lay hand completely flat. TECHNIQUE: Imaging protocol: Radiologic exam of the left hand. Views: 1 or 2 views. COMPARISON: No relevant prior studies available. FINDINGS: Bones/joints: No discrete or displaced fracture. No joint dislocation. Soft tissues: There is generally linear 5 mm radiodense focus which projects over the base of the proximal 2nd metacarpal on frontal view which may correspond to linear radiodensity which projects over the base of the proximal 1st metacarpal on lateral view however overlying osseous structures limit evaluation and difficult to confirm. Palmar hand soft tissue edema with possible focus of soft tissue air, most likely secondary to penetrating soft tissue injury. IMPRESSION: Suspected linear 5 mm radiodense foreign body within the proximal, palmar hand soft tissues however evaluation is limited by overlying osseous structures. Recommend follow up evaluation with complete hand series versus CT. May also consider focused sonogram to evaluate for location of foreign body. Dictated and Authenticated by: Darius Alvarado MD. Orderin Shana Gomes MD
== END 2024-11-09 23:39 | disposition home or self-care (01) ==
PROVIDERS: Emergency Provider Nurse Practitioner Family; PCP Nurse Practitioner Family
DX: S61.412A Laceration without foreign body of left hand, initial encounter (principal); W25.XXXA Contact with sharp glass, initial encounter; Y93.G1 Activity, food preparation and clean up
CPT/HCPCS: 12002; 99283; 73120; J2004